=== PATIENT | female | born 1960 | race Caucasian/White ===

== ENCOUNTER 2018-05-21 18:05 | Emergency (ER) | payer OTHER, SELFPAY ==
[2018-05-21 18:09] VITALS: BP 114/77; PULSE 108; RESP 14; TEMP 36.6; O2SAT 100
[2018-05-21 18:45] LABS: Add Manual Diff / Slide Review NO; Basophils Percent Auto 0.8 % (0-2); Eosinophils Percent Auto 2.1 % (2-4); Hematocrit 42.6 % (36-46); Hemoglobin 14.4 g/dL (12.0-16.0); Lymphocytes Percent Auto 26.4 % (25-40); Mean Corpuscular HGB Conc 33.7 % (30-36); Monocytes Percent Auto 7.5 % (3-14); Neutrophils Absolute Auto 6400 /uL (3000-5900); Neutrophils Percent Auto 63.2 % (50-75); Platelet Count 337 X10^3/uL (150-400); Red Blood Cell Count 4.63 X10^6/uL (4.0-5.2); White Blood Cell Count 10.2 X10^3/uL (4.5-11.0)
[2018-05-21 18:46] VITALS: PULSE 93; RESP 16; O2SAT 100
--- NOTE | 2018-05-21 18:47 | PC.NURSE ---
started with generalized weakness today, admits of having a drink last night, denies taking any other drugs. alert and drowsy, skin warm dry vazquez, maew. neuro fast exam negative. denies injuries.
[2018-05-21] MEDS: SODIUM CHLORIDE 0.9% 1,000 ML 1000 ML IV (18:51)
--- NOTE | 2018-05-21 18:53 | ED.WEAKNESS ---
HPI - Weakness General Chief complaint: Weakness Stated complaint: Generalized weakness Time Seen by Provider: 05/21/18 18:06 Source: patient Mode of arrival: EMS Limitations: no limitations History of Present Illness HPI Narrative: This is a 57-year-old female who comes to the emergency department with complaint of weakness and feeling fatigued. Patient states it started a couple hours ago today. She states yesterday she felt a little run down her symptoms really started this afternoon. She had some heart palpitations earlier today and felt sort of dizzy but that has resolved. She has not had any syncope. She felt shaky earlier but feels better now. Patient states it feels sort of like someone who has low blood sugar. She does not have any history of sugar issues or diabetes. She felt nauseated although she states that is resolved currently. She denies any vomiting. She has had some sinus drainage but no nasal congestion. She states not really any cough. No chest pain, no shortness of breath. No recent diarrhea or constipation. No urinary symptoms such as frequency urgency or dysuria. She recently had some back pain and was on Flexeril which she stopped 2 days ago. She states her back still little sore but is better than it was. She has a history of some asthma and uses albuterol as needed. She takes Xanax occasionally for insomnia. She has had her tubes tied but denies other surgery. She smokes 1 pack per day. She had several drinks of alcohol last night but states this isn't a regular occurrence perhaps in a monthly occasion. She occasionally does THC for sleep. Related Data Home Medications Medication Instructions Recorded Confirmed ALBUTEROL SULFATE (Ventolin / 2 puff INH Q4H PRN #0 07/08/06 Proventil) CA PANTOTHENATE/FOLIC ACID/VIT 1 tab PO QDAY #0 10/31/12 (MULTIVITAMIN) alprazolam [Xanax XR] 0.5 mg PO PRN #0 10/31/12 Allergies Allergy/AdvReac Type Severity Reaction Status Date / Time codeine [CODEINE] Allergy Mild ITCH Verified 05/21/18 18:51 Review of Systems Review of Systems All systems reviewed & are unremarkable except as noted in HPI and below Constitutional Denies body ache(s), Denies chills, Reports fatigue, Denies fever(s), Reports malaise and Reports weakness (Generalized) ENT Ears, Nose, Mouth, and Throat: Reports dizziness (Resolved), Denies nasal congestion, Reports post nasal drip and Denies sinus pressure Cardiovascular Denies chest pain, Denies syncope, Denies edema, Denies irregular heart rhythm, Denies lightheadedness, Reports palpitations, Denies dyspnea and Denies orthopnea Respiratory Denies chest congestion, Denies cough, Denies excessive phlegm production, Denies dyspnea and Denies wheezing Gastrointestinal Gastrointestinal: Denies abdominal pain, Denies change in bowel habits, Denies diarrhea, Reports nausea (Improved) and Denies vomiting Genitourinary Denies urinary frequency, Denies urinary incontinence and Denies urinary urgency Musculoskeletal Reports back pain (Improved from prior) and Denies numbness Integumentary/Breasts Denies rash Neurologic Reports dizziness (Resolved), Denies syncope, Denies focal weakness, Denies numbness, Denies paresthesias and Reports weakness (Generalized) Endocrine Reports fatigue and Reports palpitations Allergic/Immunologic Denies wheezing PFSH Medical History Asthma (Acute) Insomnia (Acute) Surgical History Hx of tubal ligation (Acute) Social History Smoking Status: Current every day smoker alcohol intake: current substance use type: marijuana Exam Narrative Exam Narrative: GEN: well nourished, well appearing female, alert and oriented x 3, patient appears to be in mild distress. HEENT: Atraumatic, pupils are equal round reactive to light, extraocular movements are intact, nares are clear. HEART: Regular rate and rhythm without murmur, clicks, rubs. Pulses equal bilateral upper extremities. LUNGS:Lungs clear to auscultation, no wheezes, rales, crackles, chest moves symmetrically ABD:bowel sounds normal, soft, non-tender, no guarding, rebound, rigidity, no masses noted, no hepatosplenomegaly :No CVA tenderness MSCL: Non-tender, no muscle atrophy, full range of motion. NEURO:CN 2-12 intact, sensation normal. Initial Vital Signs Initial Vital Signs: Vital Signs Temperature 97.9 F 05/21/18 18:09 Pulse Rate 108 H 05/21/18 18:09 Respiratory Rate 14 05/21/18 18:09 Blood Pressure 114/77 05/21/18 18:09 Pulse Oximetry 100 05/21/18 18:09 Course Orders Ordered: ED Orders 05/21/18 19:46 XR chest 2V Stat Discontinued Medications Sodium Chloride (Normal Saline 0.9%) 1,000 mls @ 1,000 mls/hr IV BOLUS ONE Stop: 05/21/18 19:05 Last Infusion: 05/21/18 19:55 Dose: 0 mls/hr Admin: 05/21/18 18:51 Dose: 1,000 mls/hr Vital Signs - 8 hr 05/21/18 20:09 05/21/18 21:00 05/21/18 21:57 Pulse Rate 87 80 77 Respiratory Rate 17 20 18 Blood Pressure 121/71 Blood Pressure [Left Arm] 135/77 111/76 Pulse Oximetry 99 97 99 MDM - Weakness Lab Data Attestation: I reviewed the patient's lab results. Result diagrams: 05/21/18 18:35 05/21/18 18:35 Lab Results 05/21/18 05/21/18 05/21/18 Range/Units 18:35 18:35 18:35 WBC 10.2 (4.5-11.0) X10^3/uL RBC 4.63 (4.0-5.2) X10^6/uL Hgb 14.4 (12.0-16.0) g/dL Hct 42.6 (36-46) % MCV 92.0 (80-100) fL MCH 31.0 (26-34) PG MCHC 33.7 (30-36) % RDW 13.0 (11.6-14.8) % Plt Count 337 (150-400) X10^3/uL Neut % (Auto) 63.2 (50-75) % Lymph % (Auto) 26.4 (25-40) % [place] % (Auto) 7.5 (3-14) % Eos % (Auto) 2.1 (2-4) % Baso % (Auto) 0.8 (0-2) % Neut # (Auto) 6400 H (3456-4117) /uL Sodium 140 (137-145) mmol/L Potassium 3.5 (3.4-5.1) mmol/L Chloride 102 (98-107) mmol/L Carbon Dioxide 28 (22-32) mmol/L BUN 16 (7-17) mg/dL Creatinine 0.80 (0.52-1.04) mg/dL Estimated GFR > 60.0 (>60) mL/min BUN/Creatinine Ratio 20.0 (6-22) Glucose 107 H (70-100) mg/dL Lactate (0.7-2.1) mmol/L Calcium 9.2 (8.4-10.2) mg/dL Total Bilirubin 0.3 (0.2-1.3) mg/dL AST 17 (14-36) IU/L ALT 18 (9-52) IU/L Alkaline Phosphatase 62 (38-126) U/L Total Protein 6.8 (6.3-8.2) g/dL Albumin 4.3 (3.5-5.0) g/dL Globulin 2.5 (1.7-4.1) g/dL Albumin/Globulin Ratio 1.7 (1.0-2.8) Lipase 41 (23-300) U/L Procalcitonin < 0.05 (<0.5) ng/mL Influenza A & B (PCR) (Negative) 05/21/18 05/21/18 Range/Units 18:35 18:50 WBC (4.5-11.0) X10^3/uL RBC (4.0-5.2) X10^6/uL Hgb (12.0-16.0) g/dL Hct (36-46) % MCV (80-100) fL MCH (26-34) PG MCHC (30-36) % RDW (11.6-14.8) % Plt Count (150-400) X10^3/uL Neut % (Auto) (50-75) % Lymph % (Auto) (25-40) % [place] % (Auto) (3-14) % Eos % (Auto) (2-4) % Baso % (Auto) (0-2) % Neut # (Auto) (3243-5203) /uL Sodium (137-145) mmol/L Potassium (3.4-5.1) mmol/L Chloride (98-107) mmol/L Carbon Dioxide (22-32) mmol/L BUN (7-17) mg/dL Creatinine (0.52-1.04) mg/dL Estimated GFR (>60) mL/min BUN/Creatinine Ratio (6-22) Glucose (70-100) mg/dL Lactate 1.2 (0.7-2.1) mmol/L Calcium (8.4-10.2) mg/dL Total Bilirubin (0.2-1.3) mg/dL AST (14-36) IU/L ALT (9-52) IU/L Alkaline Phosphatase (38-126) U/L Total Protein (6.3-8.2) g/dL Albumin (3.5-5.0) g/dL Globulin (1.7-4.1) g/dL Albumin/Globulin Ratio (1.0-2.8) Lipase (23-300) U/L Procalcitonin (<0.5) ng/mL Influenza A & B (PCR) Negative (Negative) Urine Dip Bedside Urine Glucose Negative Bedside Urine Bilirubin - Negative Bedside Urine Ketone - Negative Urine Specific [place] 1.015 Bedside Urine Occult Blood - Negative Bedside Urine pH 6.5 Bedside Urine Protein - Negative Bedside Urine Urobilinogen - Negative Bedside Urine Nitrite - Negative Bedside Urine Leukocytes - Negative Esterase Imaging Data Chest x-ray: Radiologist's impression: [address] [address] XRay Report Signed Patient: Gypsy Christie [facility]#: [id number] : 2Acct:[id number] Age/Sex: 57 / FDate of Service: 05/21/18 Loc: ED Accession Number: [id number] Procedure: XR chest 2V Ordering Provider: Sonia Lutz D.O. PROCEDURE: XR CHEST 2V INDICATIONS: weakness TECHNIQUE: 2 views of the chest were acquired. COMPARISON: None. FINDINGS: Surgical changes and devices: None. Lungs and pleura: No pleural effusions or pneumothorax. Lungs are clear. The lung volumes are large and the diaphragms are flattened suggesting emphysema. Mediastinum: Mediastinal contours are normal. Heart size is normal. Bones and chest wall: No suspicious bony abnormalities. Soft tissues appear unremarkable. IMPRESSION: No acute cardiopulmonary findings. Emphysematous change. Dictated by: Minerva Desouza M.D. on 05/21/2018 at 20:05 Approved by: Minerva Desouza M.D. on 05/21/2018 at 20:09 ECG Data Attestation: I personally reviewed and interpreted this ECG as follows: Interpretation: Sinus rhythm rate in 98 CA 128 QRS of 100 and QTC of 410. Patient has not ST depression in 2 3 in AVF. New elevation appreciated. Q-wave in V1 V2. Patient's EKG appears from 10/27/2016. MDM Narrative Medical decision making narrative: Patient feeling better after 1L normal saline. Labs, CXR, flu swab and urine are negative. Discussed signs symptoms to watch for and reasons to return. Patient did stop flexeril recently and stopped 2 days ago and had several alcoholic drinks last night and may have contributed although patient states she only had 2-3 drinks almost 24 hours before. Discharge Plan Departure Patient Disposition: Home Clinical Impression: Weakness Discharge Date/Time: 05/21/18 21:58 Interventions: ED Discharge Assessment Last Done: 05/21/18 21:57 Activity Restrictions/Additional Instructions: Follow-up Tuesday or Tuesday if your symptoms are not improving with Shilpa Johnson. Call for an appointment. Avoid any alcohol for the next several days until you feel back to normal. Make sure your hydrating and drinking plenty of fluids. Return to the emergency department for any worsening symptoms, fevers greater than 100.4, shortness of breath, chest pain, persistent vomiting or syncope/passing out or other new or concerning symptoms. Prescriptions: No Action ALBUTEROL SULFATE (Ventolin / Proventil) 2 puff INH Q4H PRN Qty: 0 RF: 0 alprazolam [Xanax XR] 0.5 MG tablet extended release 24 hr 0.5 mg PO PRN Qty: 0 RF: 0 CA PANTOTHENATE/FOLIC ACID/VIT (MULTIVITAMIN) 1 tab PO QDAY Qty: 0 RF: 0
[2018-05-21 18:58] VITALS: BP 116/73; PULSE 89; RESP 14; O2SAT 96
[2018-05-21 18:58] LABS: Alanine Aminotransferase 18 IU/L (9-52); Albumin 4.3 g/dL (3.5-5.0); Albumin Globulin Ratio 1.7 (1.0-2.8); Alkaline Phosphatase 62 U/L (38-126); Aspartate Aminotransferase 17 IU/L (14-36); Bilirubin Total 0.3 mg/dL (0.2-1.3); Blood Urea Nitrogen 16 mg/dL (7-17); Calcium 9.2 mg/dL (8.4-10.2); Carbon Dioxide 28 mmol/L (22-32); Chloride 102 mmol/L (98-107); Estimated Glomerular Filt Rate > 60.0 mL/min (>60); Globulin 2.5 g/dL (1.7-4.1); Glucose 107 mg/dL (70-100); HEMOLYSIS < 15 (0-50); Lactate (Lactic Acid) 1.2 mmol/L (0.7-2.1); Lipase 41 U/L (23-300); Potassium 3.5 mmol/L (3.4-5.1); Sodium 140 mmol/L (137-145); Total Protein 6.8 g/dL (6.3-8.2)
--- NOTE | 2018-05-21 19:06 | ED_ITS ---
HPI - Weakness General Chief complaint: Weakness Stated complaint: Generalized weakness Time Seen by Provider: 05/21/18 18:06 Source: patient Mode of arrival: EMS Limitations: no limitations History of Present Illness HPI Narrative: This is a 57-year-old female who comes to the emergency department with complaint of weakness and feeling fatigued. Patient states it started a couple hours ago today. She states yesterday she felt a little run down her symptoms really started this afternoon. She had some heart palpitations earlier today and felt sort of dizzy but that has resolved. She has not had any syncope. She felt shaky earlier but feels better now. Patient states it feels sort of like someone who has low blood sugar. She does not have any history of sugar issues or diabetes. She felt nauseated although she states that is resolved currently. She denies any vomiting. She has had some sinus drainage but no nasal congestion. She states not really any cough. No chest pain, no shortness of breath. No recent diarrhea or constipation. No urinary symptoms such as frequency urgency or dysuria. She recently had some back pain and was on Flexeril which she stopped 2 days ago. She states her back still little sore but is better than it was. She has a history of some asthma and uses albuterol as needed. She takes Xanax occasionally for insomnia. She has had her tubes tied but denies other surgery. She smokes 1 pack per day. She had several drinks of alcohol last night but states this isn' t a regular occurrence perhaps in a monthly occasion. She occasionally does THC for sleep. Related Data Home Medications Medication Instructions Recorded Confirmed ALBUTEROL SULFATE (Ventolin / 2 puff INH Q4H PRN #0 07/08/06 Proventil) CA PANTOTHENATE/FOLIC ACID/VIT 1 tab PO QDAY #0 10/31/12 (MULTIVITAMIN) alprazolam [Xanax XR] 0.5 mg PO PRN #0 10/31/12 Allergies Allergy/AdvReac Type Severity Reaction Status Date / Time codeine [CODEINE] Allergy Mild ITCH Verified 05/21/18 18:51 Review of Systems Review of Systems All systems reviewed & are unremarkable except as noted in HPI and below Constitutional Denies body ache(s), Denies chills, Reports fatigue, Denies fever(s), Reports malaise and Reports weakness (Generalized) ENT Ears, Nose, Mouth, and Throat: Reports dizziness (Resolved), Denies nasal congestion, Reports post nasal drip and Denies sinus pressure Cardiovascular Denies chest pain, Denies syncope, Denies edema, Denies irregular heart rhythm, Denies lightheadedness, Reports palpitations, Denies dyspnea and Denies orthopnea Respiratory Denies chest congestion, Denies cough, Denies excessive phlegm production, Denies dyspnea and Denies wheezing Gastrointestinal Gastrointestinal: Denies abdominal pain, Denies change in bowel habits, Denies diarrhea, Reports nausea (Improved) and Denies vomiting Genitourinary Denies urinary frequency, Denies urinary incontinence and Denies urinary urgency Musculoskeletal Reports back pain (Improved from prior) and Denies numbness Integumentary/Breasts Denies rash Neurologic Reports dizziness (Resolved), Denies syncope, Denies focal weakness, Denies numbness, Denies paresthesias and Reports weakness (Generalized) Endocrine Reports fatigue and Reports palpitations Allergic/Immunologic Denies wheezing PFSH Medical History Asthma (Acute) Insomnia (Acute) Surgical History Hx of tubal ligation (Acute) Social History Smoking Status: Current every day smoker alcohol intake: current substance use type: marijuana Exam Narrative Exam Narrative: GEN: well nourished, well appearing female, alert and oriented x 3, patient appears to be in mild distress. HEENT: Atraumatic, pupils are equal round reactive to light, extraocular movements are intact, nares are clear. HEART: Regular rate and rhythm without murmur, clicks, rubs. Pulses equal bilateral upper extremities. LUNGS:Lungs clear to auscultation, no wheezes, rales, crackles, chest moves symmetrically ABD:bowel sounds normal, soft, non-tender, no guarding, rebound, rigidity, no masses noted, no hepatosplenomegaly :No CVA tenderness MSCL: Non-tender, no muscle atrophy, full range of motion. NEURO:CN 2-12 intact, sensation normal. Initial Vital Signs Initial Vital Signs: Vital Signs Temperature 97.9 F 05/21/18 18:09 Pulse Rate 108 H 05/21/18 18:09 Respiratory Rate 14 05/21/18 18:09 Blood Pressure 114/77 05/21/18 18:09 Pulse Oximetry 100 05/21/18 18:09 Course Orders Ordered: ED Orders 05/21/18 19:46 XR chest 2V Stat Discontinued Medications Sodium Chloride (Normal Saline 0.9%) 1,000 mls @ 1,000 mls/hr IV BOLUS ONE Stop: 05/21/18 19:05 Last Infusion: 05/21/18 19:55 Dose: 0 mls/hr Admin: 05/21/18 18:51 Dose: 1,000 mls/hr Vital Signs - 8 hr 05/21/18 20:09 05/21/18 21:00 05/21/18 21:57 Pulse Rate 87 80 77 Respiratory Rate 17 20 18 Blood Pressure 121/71 Blood Pressure [Left Arm] 135/77 111/76 Pulse Oximetry 99 97 99 MDM - Weakness Lab Data Attestation: I reviewed the patient's lab results. Result diagrams: 05/21/18 18:35 05/21/18 18:35 Lab Results 05/21/18 05/21/18 05/21/18 Range/Units 18:35 18:35 18:35 WBC 10.2 (4.5-11.0) X10^3/uL RBC 4.63 (4.0-5.2) X10^6/uL Hgb 14.4 (12.0-16.0) g/dL Hct 42.6 (36-46) % MCV 92.0 (80-100) fL MCH 31.0 (26-34) PG MCHC 33.7 (30-36) % RDW 13.0 (11.6-14.8) % Plt Count 337 (150-400) X10^3/uL Neut % (Auto) 63.2 (50-75) % Lymph % (Auto) 26.4 (25-40) % [place] % (Auto) 7.5 (3-14) % Eos % (Auto) 2.1 (2-4) % Baso % (Auto) 0.8 (0-2) % Neut # (Auto) 6400 H (8198-3077) /uL Sodium 140 (137-145) mmol/L Potassium 3.5 (3.4-5.1) mmol/L Chloride 102 (98-107) mmol/L Carbon Dioxide 28 (22-32) mmol/L BUN 16 (7-17) mg/dL Creatinine 0.80 (0.52-1.04) mg/dL Estimated GFR > 60.0 (>60) mL/min BUN/Creatinine Ratio 20.0 (6-22) Glucose 107 H (70-100) mg/dL Lactate (0.7-2.1) mmol/L Calcium 9.2 (8.4-10.2) mg/dL Total Bilirubin 0.3 (0.2-1.3) mg/dL AST 17 (14-36) IU/L ALT 18 (9-52) IU/L Alkaline Phosphatase 62 (38-126) U/L Total Protein 6.8 (6.3-8.2) g/dL Albumin 4.3 (3.5-5.0) g/dL Globulin 2.5 (1.7-4.1) g/dL Albumin/Globulin Ratio 1.7 (1.0-2.8) Lipase 41 (23-300) U/L Procalcitonin < 0.05 (<0.5) ng/mL Influenza A & B (PCR) (Negative) 05/21/18 05/21/18 Range/Units 18:35 18:50 WBC (4.5-11.0) X10^3/uL RBC (4.0-5.2) X10^6/uL Hgb (12.0-16.0) g/dL Hct (36-46) % MCV (80-100) fL MCH (26-34) PG MCHC (30-36) % RDW (11.6-14.8) % Plt Count (150-400) X10^3/uL Neut % (Auto) (50-75) % Lymph % (Auto) (25-40) % [place] % (Auto) (3-14) % Eos % (Auto) (2-4) % Baso % (Auto) (0-2) % Neut # (Auto) (9080-7289) /uL Sodium (137-145) mmol/L Potassium (3.4-5.1) mmol/L Chloride (98-107) mmol/L Carbon Dioxide (22-32) mmol/L BUN (7-17) mg/dL Creatinine (0.52-1.04) mg/dL Estimated GFR (>60) mL/min BUN/Creatinine Ratio (6-22) Glucose (70-100) mg/dL Lactate 1.2 (0.7-2.1) mmol/L Calcium (8.4-10.2) mg/dL Total Bilirubin (0.2-1.3) mg/dL AST (14-36) IU/L ALT (9-52) IU/L Alkaline Phosphatase (38-126) U/L Total Protein (6.3-8.2) g/dL Albumin (3.5-5.0) g/dL Globulin (1.7-4.1) g/dL Albumin/Globulin Ratio (1.0-2.8) Lipase (23-300) U/L Procalcitonin (<0.5) ng/mL Influenza A & B (PCR) Negative (Negative) Urine Dip Bedside Urine Glucose Negative Bedside Urine Bilirubin - Negative Bedside Urine Ketone - Negative Urine Specific [place] 1.015 Bedside Urine Occult Blood - Negative Bedside Urine pH 6.5 Bedside Urine Protein - Negative Bedside Urine Urobilinogen - Negative Bedside Urine Nitrite - Negative Bedside Urine Leukocytes - Negative Esterase Imaging Data Chest x-ray: Radiologist's impression: [address] [address] XRay Report Signed Patient: Gypsy Christie [facility]#: [id number] : 2Acct:[id number] Age/Sex: 57 / FDate of Service: 05/21/18 Loc: ED Accession Number: [id number] Procedure: XR chest 2V Ordering Provider: Sonia Lutz D.O. PROCEDURE: XR CHEST 2V INDICATIONS: weakness TECHNIQUE: 2 views of the chest were acquired. COMPARISON: None. FINDINGS: Surgical changes and devices: None. Lungs and pleura: No pleural effusions or pneumothorax. Lungs are clear. The lung volumes are large and the diaphragms are flattened suggesting emphysema. Mediastinum: Mediastinal contours are normal. Heart size is normal. Bones and chest wall: No suspicious bony abnormalities. Soft tissues appear unremarkable. IMPRESSION: No acute cardiopulmonary findings. Emphysematous change. Dictated by: Minerva Desouza M.D. on 05/21/2018 at 20:05 Approved by: Minerva Desouza M.D. on 05/21/2018 at 20:09 ECG Data Attestation: I personally reviewed and interpreted this ECG as follows: Interpretation: Sinus rhythm rate in 98 [place] 128 QRS of 100 and QTC of 410. Patient has not ST depression in 2 3 in AVF. New elevation appreciated. Q- wave in V1 V2. Patient's EKG appears from 10/27/2016. MDM Narrative Medical decision making narrative: Patient feeling better after 1L normal saline. Labs, CXR, flu swab and urine are negative. Discussed signs symptoms to watch for and reasons to return. Patient did stop flexeril recently and stopped 2 days ago and had several alcoholic drinks last night and may have contributed although patient states she only had 2-3 drinks almost 24 hours before. Discharge Plan Departure Patient Disposition: Home Clinical Impression: Weakness Discharge Date/Time: 05/21/18 21:58 Interventions: ED Discharge Assessment Last Done: 05/21/18 21:57 Activity Restrictions/Additional Instructions: Follow-up Tuesday or Tuesday if your symptoms are not improving with Shilpa Johnson. Call for an appointment. Avoid any alcohol for the next several days until you feel back to normal. Make sure your hydrating and drinking plenty of fluids. Return to the emergency department for any worsening symptoms, fevers greater than 100.4, shortness of breath, chest pain, persistent vomiting or syncope/ passing out or other new or concerning symptoms. Prescriptions: No Action ALBUTEROL SULFATE (Ventolin / Proventil) 2 puff INH Q4H PRN Qty: 0 RF: 0 alprazolam [Xanax XR] 0.5 MG tablet extended release 24 hr 0.5 mg PO PRN Qty: 0 RF: 0 CA PANTOTHENATE/FOLIC ACID/VIT (MULTIVITAMIN) 1 tab PO QDAY Qty: 0 RF: 0
[2018-05-21 19:21] LABS: Influenza A and B by PCR Rapid Negative (Negative)
[2018-05-21 19:24] LABS: Procalcitonin < 0.05 ng/mL (<0.5)
--- NOTE | 2018-05-21 19:46 | DI.RAD.S_ITS ---
PROCEDURE: XR CHEST 2V INDICATIONS: weakness TECHNIQUE: 2 views of the chest were acquired. COMPARISON: None. FINDINGS: Surgical changes and devices: None. Lungs and pleura: No pleural effusions or pneumothorax. Lungs are clear. The lung volumes are large and the diaphragms are flattened suggesting emphysema. Mediastinum: Mediastinal contours are normal. Heart size is normal. Bones and chest wall: No suspicious bony abnormalities. Soft tissues appear unremarkable. IMPRESSION: No acute cardiopulmonary findings. Emphysematous change. Dictated by: Minerva Desouza M.D. on 05/21/2018 at 20:05 Approved by: Minerva Desouza M.D. on 05/21/2018 at 20:09
[2018-05-21 20:09] VITALS: BP 135/77; PULSE 87; RESP 17; O2SAT 99
--- NOTE | 2018-05-21 20:59 | PC.NURSE ---
Pt ambulated to restroom. steady gate. pt stated it feels good to get up and move. I'm starting to feel better. Pt returned to room and reattached to monitor.
[2018-05-21 21:00] VITALS: BP 111/76; PULSE 80; RESP 20; O2SAT 97
[2018-05-21 21:57] VITALS: BP 121/71; PULSE 77; RESP 18; O2SAT 99
[2018-05-23 18:47] LABS: Acinetobacter baumannii Not Detected (Not Detect); Candida albicans Not Detected (Not Detect); Candida glabrata Not Detected (Not Detect); Candida krusei Not Detected (Not Detect); Candida parapsilosis Not Detected (Not Detect); Candida tropicalis Not Detected (Not Detect); E. coli Not Detected (Not Detect); Enterobacter cloacae complex Not Detected (Not Detect); Enterobacteriaceae species Not Detected (Not Detect); Enterococcus species Not Detected (Not Detect); Haemophilus influenzae Not Detected (Not Detect); Listeria monocytogenes Not Detected (Not Detect); Neisseria meningitidis Not Detected (Not Detect); Proteus species Not Detected (Not Detect); Pseudomonas aeruginosa Not Detected (Not Detect); Serratia marcescens Not Detected (Not Detect); Staphylococcus species Not Detected (Not Detect); Streptococcus agalactiae (Gr B Not Detected (Not Detect); Streptococcus pneumonia Not Detected (Not Detect); Streptococcus pyogenes (Gr A) Not Detected (Not Detect); Streptococcus species Not Detected (Not Detect)
--- NOTE | 2018-05-29 13:34 | PC.NURSE ---
Called patient in follow up: Pt states she is feeling much improved. Encouraged to f/u w/ primary care provider and return if any difficulty or concerns.
== END 2018-05-21 21:58 | disposition home or self-care (01) ==
PROVIDERS: Emergency Medicine; Emergency Provider Emergency Medicine; Family Provider Physician Assistant; PCP Physician Assistant
DX: R53.1 Weakness (principal)
CPT/HCPCS: 36415; 36591; 71046; 80053; 81003; 83605; 83690; 84145; 85025; 87040; 87150; 87205; 87400; 93005; 93010; 96360; 99283; 99285

== ENCOUNTER → 2018-10-06 16:31 | Outpatient (CLI) | payer OTHER, SELFPAY ==
--- NOTE | 2018-10-06 16:34 | DI.RAD.S_ITS ---
PROCEDURE: XR CHEST 2V INDICATIONS: COUGH TECHNIQUE: 2 views of the chest were acquired. COMPARISON: [facility], , XR CHEST 2V, 05/21/2018, 19:26. [facility], , CHEST 2 VIEW, 08/10/2010, 10:07. FINDINGS: Surgical changes and devices: None. Lungs and pleura: Lungs are clear, but the lung volumes are very large and COPD is suspected. No pleural effusions or pneumothorax. Mediastinum: Mediastinal contours are normal. Heart size is normal. Bones and chest wall: No suspicious bony abnormalities. Soft tissues appear unremarkable. IMPRESSION: Suspect COPD but no pneumonia found. No alternative source of cough is identified. Dictated by: Tyrone Juan M.D. on 10/06/2018 at 17:01 Approved by: Tryone Juan M.D. on 10/06/2018 at 17:01
== END ==
PROVIDERS: Family Provider Physician Assistant; PCP Physician Assistant; Visit Provider Student in an Organized Health Care Education/Training Program
DX: R05 Cough (principal)
CPT/HCPCS: 71046

== ENCOUNTER → 2021-10-14 08:06 | Outpatient (CLI) | payer OTHER, SELFPAY ==
--- NOTE | 2021-10-14 08:08 | DI.RAD.S_ITS ---
PROCEDURE: XR FOOT LT MIN 3V INDICATIONS: left foot injury TECHNIQUE: 3 views of the foot were acquired. COMPARISON: [facility], , FOOT 3V RIGHT, 04/01/2011, 11:29. FINDINGS: Bones: No fractures or dislocations. No suspicious bony lesions. Soft tissues: No tibiotalar joint effusion. Achilles tendon appears normal. IMPRESSION: No acute fracture. No osseous lesion. If symptoms and/or clinical suspicion for pathology persist, further assessment with repeat, or advanced imaging (e.g., CT, MRI, or bone scan) may be helpful for further assessment. Dictated by: Albaro Dillon M.D. on 10/14/2021 at 8:38 Approved by: Albaro Dillon M.D. on 10/14/2021 at 8:39
== END ==
PROVIDERS: Family Provider Physician Assistant; PCP Physician Assistant; Referring Provider Physician Assistant; Visit Provider Physician Assistant
DX: S99.922A Unspecified injury of left foot, initial encounter (principal)
CPT/HCPCS: 73630